=== PATIENT | male | born 1970 | race Caucasian/White ===

== ENCOUNTER 2020-11-13 11:33 | Emergency (ER) | payer MEDICAID ==
[~2020-11-13] VITALS: Ht 175.3 cm; Wt 91.2 kg
[2020-11-13 11:56] VITALS: BP_SYST 147
[2020-11-13 12:10] LABS: BASOPHILS # (AUTO) 0.1 K/uL (0.0-0.2); BASOPHILS % (AUTO) 0.7 % (0.0-2.0); EOSINOPHILS # (AUTO) 0.3 K/uL (0.0-0.4); EOSINOPHILS % (AUTO) 2.4 % (0.0-4.0); HEMATOCRIT 43.6 % (36-54); HEMOGLOBIN 14.6 g/dL (14.0-18.0); LYMPHOCYTES # (AUTO) 2.9 K/uL (1.0-5.5); LYMPHOCYTES % (AUTO) 23.5 % (20.5-51.5); MEAN CORPUSCULAR HEMOGLOBIN 29 pg (27-31); MEAN CORPUSCULAR HGB CONC 34 % (32-36); MEAN CORPUSCULAR VOLUME 85 fL (79.0-98.0); MONOCYTES # (AUTO) 0.9 K/uL (0.0-1.0); MONOCYTES % (AUTO) 7.4 % (1.7-9.3); PLATELET COUNT (AUTO) 165 K/uL (130-430); RED BLOOD CELL COUNT(AUTO) 5.14 MIL/uL (4.2-6.2); RED CELL DISTRIBUTION WIDTH 13.7 % (9.0-15.0); WHITE BLOOD COUNT (AUTO) 12.1 K/uL (4.8-10.8)
[2020-11-13 12:27] LABS: CALCIUM 8.7 mg/dL (8.4-11.0); CREATININE 0.88 mg/dL (0.55-1.30); POTASSIUM 3.8 mmol/L (3.5-5.1)
[2020-11-13 12:33] LABS: ALBUMIN 3.9 g/dL (3.4-4.8); TOTAL BILIRUBIN 0.2 mg/dL (0.0-1.0)
[2020-11-13] MEDS ORDERED: CLIN300C12 PO (12:40)
[2020-11-13 12:48] LABS: C-REACTIVE PROTEIN QUANT 0.3 mg/dL (0-0.5)
[2020-11-13] MEDS ORDERED: IBUP-1971 PO (13:06)
[2020-11-13] MEDS ORDERED: KETOROLAC TROMETHAMINE 60 MG/2 ML VIAL IM ONE (13:15)
[2020-11-13 13:37] VITALS: BP_SYST 136
== END 2020-11-13 13:39 | disposition home or self-care (01) ==
LOC: SED 11:33
DX: T63.441A Toxic effect of venom of bees, accidental (unintentional), initial encounter (principal); L03.114 Cellulitis of left upper limb; M79.89 Other specified soft tissue disorders
CPT/HCPCS: 36415; 80053; 83605; 85025; 86140; 96372; 99283; J1885